=== PATIENT | female | born 2000 | race Caucasian/White ===

== ENCOUNTER 2025-02-21 14:50 | Emergency (ER) | payer BC ==
[~2025-02-21] VITALS: Ht 160 cm; Wt 49.9 kg
[2025-02-21 18:41] LABS: BASOPHILS # (AUTO) 0.1 K/uL (0.0-0.2); BASOPHILS % (AUTO) 0.8 % (0.0-2.0); EOSINOPHILS # (AUTO) 0.1 K/uL (0.0-0.7); EOSINOPHILS % (AUTO) 0.9 % (0.0-6.0); HEMATOCRIT 41 % (33-45); HEMOGLOBIN 13.9 g/dL (11.5-14.8); LYMPHOCYTES # (AUTO) 2.4 K/uL (0.8-4.8); MEAN CORPUSCULAR HEMOGLOBIN 31 PG (26.0-33.0); MEAN CORPUSCULAR HGB CONC 34 g/dl (31.0-36.0); MEAN CORPUSCULAR VOLUME 91 fL (82-100); MONOCYTES # (AUTO) 0.7 K/uL (0.1-1.30); MONOCYTES % (AUTO) 7.5 % (2.0-12.0); NEUTROPHILS # (AUTO) 6.5 K/uL (1.8-8.9); NEUTROPHILS % (AUTO) 66.8 % (43.0-81.0); PLATELET COUNT (AUTO) 194 K/uL (150-450); RED CELL DISTRIBUTION WIDTH 12.8 % (11.5-15.0); WHITE BLOOD COUNT (AUTO) 9.8 K/uL (4.3-11.0)
[2025-02-21 18:43] LABS: APPEARANCE,URINE CLEAR (CLEAR); BILIRUBIN,URINE Negative (NEGATIVE); BLOOD, URINE Trace-lysed Ery/uL (NEGATIVE); COLOR,URINE YELLOW (YELLOW); KETONES,URINE Negative (NEGATIVE); LEUKOCYTE ESTERASE ,URINE Moderate (NEGATIVE); PROTEIN,URINE Negative (NEGATIVE); UGLUCOSE Negative (NEGATIVE); UROBILINOGEN,URINE 0.2 EU/dL (0.2)
[2025-02-21 18:46] LABS: NITRITE, URINE NEGATIVE (NEGATIVE)
[2025-02-21 18:47] LABS: ADD URINE CULTURE YES; BACTERIA,URINE Few /HPF (None Seen); SQUAMOUS EPITHELIAL CELL,UR Few /HPF (None Seen)
[2025-02-21 18:50] LABS: CALCIUM, SERUM 9.4 mg/dL (8.5-10.1); CREATININE 0.6 mg/dL (0.6-1.3); POTASSIUM 3.6 mmol/L (3.5-5.1)
[2025-02-21 18:56] LABS: ALBUMIN 4.3 g/dL (3.4-5.0); TOTAL PROTEIN, SERUM 8.1 g/dL (6.4-8.2)
[2025-02-21] MEDS ORDERED: IBUPROFEN 400 MG TABLET ONE (19:30)
[2025-02-21] MEDS ORDERED: CEPHALEXIN MONOHYDRATE 500 MG CAPSULE PO ONE (19:30)
[2025-02-21] MEDS: CEPHALEXIN MONOHYDRATE 500 MG CAPSULE PO ONE (19:37)
[2025-02-21] MEDS: IBUPROFEN 400 MG TABLET PO ONE (19:37)
[2025-02-21] MEDS ORDERED: IBUP-1953 PO (20:18)
[2025-02-21] MEDS ORDERED: CEPH-570 PO (20:18)
[2025-02-21 20:24] VITALS: BP 124/76; TEMP 98.3; O2SAT 98
== END 2025-02-21 20:25 | disposition home or self-care (01) ==
LOC: ER 14:57
DX: M54.59 Other low back pain (principal); Z60.2 Problems related to living alone; Z87.440 Personal history of urinary (tract) infections
CPT/HCPCS: 36415; 76705-TC; 80053-TC; 81001; 83690-TC; 85025-TC; 87086-TC